=== PATIENT | female | born 1945 | race Hispanic/Latino ===

== ENCOUNTER 2017-01-23 11:00 | Day surgery (SDC) | payer MEDICARE ==
[~2017-01-23] VITALS: Ht 152.4 cm; Wt 74.4 kg
[~2017-01-23 11:00] MED LIST: ALEN70TA2 PO; ASPI-973 PO; CALC-786 PO; DEXL60CA5 PO; HYDR-4003 PO; LEVO50TA6 PO; LIP40 PO; Lactated Ringer's 1,000 ML IV ONE; METF1000 PO; MIRT15TA6 PO; PANT40TA3 PO; PHEN-773 PO; SERT100T9 PO; SITA100T12 PO; SOLI5TAB2 PO; WHEA98PO PO
[2017-01-23] MEDS ORDERED: Propofol 10,000 mCg/mL 20 mL Inj ONE (11:01)
[2017-01-23 11:14] VITALS: BP 128/61; PULSE 69; RESP 16; O2SAT 94
[2017-01-23] MEDS ORDERED: Lactated Ringer's 1,000 ML IV SCH (11:33)
[2017-01-23] MEDS ORDERED: MetoCLOpramide 5 mg/mL 2 mL Inj IVPUSH PRN (11:35)
[2017-01-23] MEDS ORDERED: Ondansetron 2 mg/mL 2 mL Inj IVPUSH PRN (11:35)
[2017-01-23 11:52] VITALS: BP 124/73; PULSE 68; RESP 12; O2SAT 97
[2017-01-23 12:02] VITALS: BP 109/67; PULSE 67; RESP 16; O2SAT 96
[2017-01-23 12:12] VITALS: BP 113/68; PULSE 65; RESP 16; O2SAT 96
--- NOTE | 2017-01-23 14:15 | ENDO ---
[address] [address] ENDOSCOPY PROCEDURE PATIENT: FADY HARMAN : 1945 MR#: [id number] ADMIT: 01/23/2017 JOB ID: [id number] OPERATION: Esophagogastroduodenoscopy, biopsy. PREOPERATIVE DIAGNOSIS(ES): Gastroesophageal reflux disease. POSTOPERATIVE DIAGNOSIS(ES): Normal upper endoscopy, status post biopsy. ANESTHESIA: Monitored anesthesia care. COMPLICATION: None. BLOOD LOSS: Minimal. DESCRIPTION OF PROCEDURE: After risks and benefits explained to the patient, informed consent was obtained. After anesthesia administered, upper endoscope was then inserted into the mouth and intubated the esophagus, stomach, second portion of duodenum, and the mucosa carefully examined. After the procedure was done, the scope withdrawn, procedure terminated. FINDINGS: Upon inspection of the esophagus, esophagus was normal without masses, ulcers, lesions. Z-line located at 40 cm from incisors. Upon entering the stomach, the stomach was also normal without masses, ulcers, lesions. Retroflexion of the duodenal bulb, first and second portion normal. Biopsies taken in antrum, body of stomach, distal esophagus. IMPRESSION: Normal endoscopy, status post biopsy. RECOMMENDATION: Await pathology results. Follow up in GI clinic as needed.
--- NOTE | 2017-01-23 16:45 | PCM.HPANE ---
Patient Data Surgeon Admitting Provider: Attending Provider:Og Underwood MD Primary Care Physician:Sera Merritt MD Other Provider:Xochilt Garcesingham Anesthesia Reason for Visit GERD Ht/WT & BMI Body Mass Index Allergies Coded Allergies: amoxicillin (Verified Allergy, Unknown, 01/22/17) clavulanic acid (Verified Allergy, Unknown, 01/22/17) Penicillins (Verified Adverse Reaction, Severe, Nausea,Vomiting,Diarrhea, 09/16/16) Past Anesthesia History Anesthesia History: Denies:: Abnormal Airway, Anesthesia Reactions, Difficult Intubation, Fam Anesthesia Reaction Diabetes History Hx Diabetes?: Yes Type of Diabetes: Type II Glycemic Control: Oral Medication MRSA MRSA: No Medications Reported Medications Dexlansoprazole ER (Dexilant)60 Mg Rqimdru33 Mg PO DAILY 30 Days Ref 0 01/22/17 Solifenacin Succinate (Vesicare)5 Mg Tablet5 Mg PO DAILY #30 TABLET 09/20/16 Sertraline HCl (Sertraline)100 Mg Ztelfm434 Mg PO DAILY 30 Days Ref 0 09/20/[address] 40 Mg Tablet.dr40 Mg PO BID Ref 0 09/20/16 Metformin (Glucophage)1,000 Mg Tablet1,000 Mg PO BID Ref 0 09/20/16 Levothyroxine 50 Mcg Usqqhs34 Mcg PO DAILY Ref 0 09/20/16 Sitagliptin Phos (Januvia)100 Mg Qoluqh748 Mg PO DAILY Ref 0 09/20/16 Alendronate Sodium (Fosamax)70 Mg Szupiz48 Mg PO WEEKLY 30 Days Ref 0 09/20/16 Calcium Carb & Cit/Vitamin D3 (Citracal + D ER Tablet)1 Each Tablet.er1 Each PO DAILY 09/20/16 Wheat Dextrin (Benefiber)1 Each Powd.pack2 Tsp PO TID 09/20/16 Atorvastatin (Lipitor)40 Mg Mykxsj90 Mg PO DAILY Ref 0 09/20/16 Aspirin 81 Mg Nizblr09 Mg PO DAILY Ref 0 09/20/16 Discontinued Reported Medications Phenazopyridine 100 Mg Nztxit515 Mg PO TID Ref 0 01/22/17 Mirtazapine 15 Mg Wmpueg40 Mg PO HS Ref 0 09/20/16 Hydrocodone-Acetaminophen 5-325 mg 1 Each Tablet1 Tablet PO Q4H PRN For Pain Ref 0 09/20/16 Trospium Chloride ER 60 Mg Cap.er.24h60 Mg PO DAILY 09/20/16 History History of ENT Problems?: Yes HEENT History: Positive for:: Cataracts (bilateral surgery) Denies:: Abnormal Airway Difficult Intubation Dysphagia Hearing Problem Sinus Problem TMJ Cardiovascular History: Denies:: AICD Abdominal Aortic Aneurism Atrial Fibrillation Congestive Heart Failure Edema Heart Murmur Hypertension Irregular Heartbeat Pacemaker Hx of Respiratory Problem?: Yes Respiratory History: Positive for:: Use of C-PAP Machine Denies:: Asthma COPD Dyspnea Emphysema Oxygen Administration Pneumonia Tuberculosis Hx Neurologic Problems?: No Neurological History: Denies:: Alzheimer's Disease CVA Headaches Multiple Sclerosis Parkinson's Disease Seizures Hx of GI Problems?: Yes Gastrointestinal History: Positive for:: Gastroesphageal Reflux Heartburn Denies:: Hiatal Hernia Rectal Bleeding Hx of Problems?: No Genitourinary History: Denies:: Kidney Stones Urinary Tract Infection (past hx of, not current) Female Hx: Denies:: Currently (tubal ligation) Problems with Breasts? Skin History: Denies:: History Skin Disorders? Pressure Ulcers Hx Musculoskeletal Problems?: Yes Musculoskeletal History: Positive for:: Joint Replacement (bilateral hips, knee) Musculoskeletal Trauma (fx right radius current admission problem) Denies:: Back Injury Systemic Lupus Hx of Psycho/Social Problems?: Yes Psycho Social History: Positive for:: Anxiety Hx Depression Hx Surgeries?: Yes (right shoulder repair, right hip tendon repair, right knee replacement,) Hx Any Other Health Problems?: Yes Other History: Positive for:: Thyroid Disease (on medication) Denies:: Cancer History Blood Transfusions: Positive for:: Blood Transfusions (after hip replacements) Denies:: Blood Transfuse Reaction Hx Diabetes: Yes Hx Alcohol Use: NoHx Substance Use: NoHave You Smoked inLast 12 mo: No Stop/Bang Risk Assessment Category Category 1A: Patient has history of documented sleep apnea, and HAS NOT received any narcotic, sedative or anesthesia administration during this stay. Category 1B: Patient has history of documented sleep apnea, and HAS received any narcotic , sedative or anesthesia administration during this stay Category 2: Patient has SUSPECTED Obstructive Sleep Apnea, and HAS received any narcotic , sedative or anesthesia administration during this stay. Category 3: Patient has SUSPECTED Obstructive Sleep Apnea and HAS NOT received narcotic, sedative or anesthesia administration during this stay. Category 4: Outpatient in Procedural Areas with known sleep apnea or who screen positive for High Risk via the STOP/BANG questionnaire. Exam Exam General Appearance: Alert, Oriented X3, Cooperative, No Acute Distress HEENT/AIRWAY: MP 2, Neck Movement (FROM), Mouth Opening (3 FBMO) Lungs: Clear to Auscultation, Normal Air Movement Heart: Exam Unremarkable, Regular Rate/Rhythm, No Murmurs/Rubs/Gallops Plan Impression Patient chart reviewed, patient interviewed and anesthestic plan with risks, benefits, and alternatives discussed, and informed consent obtained. NPO Status: 0630 ASA Physical Status: ASA2 Mod Systemic Disease Anesthetic Plan: MAC Bene/Risks/Altern/Consents: Yes HP Complete Prior to Induction: Yes Davey Clement MD Jan 23, 2017 07:37
--- NOTE | 2017-01-23 16:45 | PCM.ANEP1 ---
Post Anesthesia Phase 1 PACU Phase 1 Assessment Vital Signs Vital Signs Date Time Temp Pulse Resp B/P Pulse Ox O2 Delivery O2 Flow Rate FiO2 01/23/17 12:12 65 16 113/68 96 Room Air 01/23/17 12:02 67 16 109/67 96 Nasal Cannula 2 01/23/17 11:52 36.1 68 12 124/73 97 Nasal Cannula 4 01/23/17 11:14 36.8 69 16 128/61 94 Room Air Anesthetic Administered: MAC Level of Alertness: Awake, talking LOWE's with Equal Strength: Yes Pain: No Nausea or Vomiting: No Cardiovascular Function and Hy: No Oxygen Delivery: Room Air Lungs: Clear to Auscultation, Normal Air Movement Dermatome Level: Full Sensation Complications: No Follow up Care: No Davey Clement MD Jan 23, 2017 16:45
--- NOTE | 2017-01-24 16:19 | PATH ---
SURGICAL PATHOLOGY Attending Physician:Og Underwood MD CASE STATUS: Signed Out PATIENT NAME: FADY HARMAN PID: [id number] : 1945 DATE COLLECTED:01/23/2017 19:54 SPECIMEN: 1: Stomach, Antrum, Biopsy 2: Gastric, Biopsy 3: Esophagus, Biopsy CLINICAL HISTORY: GERD 1). ANTRUM BIOPSY 2). GASTRIC BODY BIOPSY 3). DISTAL ESOPHAGUS BIOPSY FINAL DIAGNOSIS: 1.STOMACH, ANTRUM, BIOPSY: ANTRAL MUCOSA WITH REACTIVE GASTROPATHY. Negative for Helicobacter organisms. Negative for intestinal metaplasia. Negative for dysplasia and malignancy. 2.STOMACH, BODY, BIOPSY: BODY-TYPE MUCOSA WITH NO DIAGNOSTIC ABNORMALITY. Negative for Helicobacter organisms. Negative for intestinal metaplasia. Negative for dysplasia and malignancy. 3.DISTAL ESOPHAGUS, BIOPSY: SQUAMOCOLUMNAR JUNCTIONAL MUCOSA WITH NO DIAGNOSTIC ABNORMALITY. Negative for intestinal metaplasia. Negative for dysplasia and malignancy. ICD10 code R10.13 GROSS DESCRIPTION: The specimen is received in three formalin filled containers labeled with the patient's name. 1). The specimen is sublabeled "antrum" and consists of a 0.2 x 0.2 x 0.2 CM portion of tissue which is entirely submitted in cassette 1A. 2). The specimen is sublabeled "gastric body" and consists of 3 portions of tissue which aggregate to 0.3 x 0.3 x 0.2 CM. The specimen is entirely submitted in cassette 2A. 3). The specimen is sublabeled "distal esophagus" and consists of 2 portions of tissue which aggregate to 0.3 x 0.3 x 0.2 CM. The specimen is entirely submitted in cassette 3A. 01/23/2017 [facility] MICRO DESCRIPTION: See diagnosis. ICD-9 CODES: CPT CODES: 1: 45916 2: 98947 3: 18108 Electronically Signed Out Lacey Lucia MD [facility] Pathology [facility], [place] [address] Technical component performed at [facility], [facility] [address], [place], [address]
== END 2017-01-23 23:59 | disposition home or self-care (01) ==
LOC: END 11:00
PROVIDERS: ATTEND Internal Medicine Gastroenterology
DX: K21.9 Gastro-esophageal reflux disease without esophagitis (principal); E78.5 Hyperlipidemia, unspecified; E11.9 Type 2 diabetes mellitus without complications; E03.9 Hypothyroidism, unspecified; J45.909 Unspecified asthma, uncomplicated; G47.33 Obstructive sleep apnea (adult) (pediatric); F41.9 Anxiety disorder, unspecified; F32.9 Major depressive disorder, single episode, unspecified; Z96.651 Presence of right artificial knee joint; Z96.643 Presence of artificial hip joint, bilateral; Z79.82 Long term (current) use of aspirin; Z79.84 Long term (current) use of oral hypoglycemic drugs; Z87.891 Personal history of nicotine dependence
CPT/HCPCS: 43239; 88305; J7120